=== PATIENT | female | born 1945 | race Caucasian/White ===

== ENCOUNTER 2022-08-10 12:20 | Outpatient (CLI) | payer MEDICARE, SELFPAY ==
--- NOTE | 2022-08-10 12:15 | RT.EKG_ITS ---
APPROVED REPORT Exam: Resting ECG Reason for Exam: Irregular Heartbeat Patient Location: O HR:79 bpm ECG Measurements Heart Rate 79 AXIS ME 141 P 73 QRSd 96 QRS -14 QT 378 T 57 QTc 434 Conclusion Sinus rhythm...normal P axis, V-rate 50- 99 Probable left atrial enlargement...P >50mS, <-0.10mV V1 Otherwise normal ECG
== END 2022-08-10 12:21 | disposition home or self-care (01) ==
PROVIDERS: Visit Provider Nurse Practitioner Family
DX: I48.91 Unspecified atrial fibrillation (principal)
CPT/HCPCS: 93010

== ENCOUNTER 2022-08-10 12:42 | Outpatient (REF) | payer MEDICARE, SELFPAY ==
[2022-08-10 20:38] LABS: Bilirubin Negative (Negative); Blood Moderate (Negative); Clarity Clear (Clear); Glucose Negative (Negative); Ketones Negative (Negative); Leukocyte Esterase Small (Negative); Nitrite Negative (Negative); Specific Gravity 1.025 (1.005-1.025); Urobilinogen 0.2 mg/dL (Up to 0.2)
[2022-08-10 20:38] LABS: HCT 46.4 % (36.0-46.0); HGB 15.2 g/dL (11.2-15.7); MCH 29.8 pg (27.0-33.0); MCHC 32.8 % (32.0-36.0); MCV 91 fL (80-95); Platelet Count 175 10^3/uL (130-400); RDW 12.9 % (11.7-14.6); RDW-SD 43.7 fL; WBC 6.92 10^3/uL (4.4-10.8)
[2022-08-10 20:56] LABS: ALT 20 U/L (14-59); AST 15 U/L (15-37); Albumin 3.8 g/dL (3.4-5.0); Alkaline Phosphatase 87 U/L (46-116); Anion Gap 6.2 mmol/L (3-11); BUN 16 mg/dL (7-18); Bilirubin, Total 0.5 mg/dL (0.2-1.0); CO2 30.8 mmol/L (21.0-32.0); CREATININE 0.8 mg/dL (0.55-1.02); Calcium 9.6 mg/dL (8.5-10.1); Chloride 107 mmol/L (98-107); Glucose 115 mg/dL (74-106); Potassium 4.2 mmol/L (3.5-5.1); Sodium 144 mmol/L (136-145); TSH 0.03 uIU/mL (0.36-3.74); Total Protein 6.7 g/dL (6.4-8.2)
[2022-08-10 20:57] LABS: Bacteria Moderate HPF (Negative); C & S Indicated? Yes; Casts Negative LPF (Negative); Crystals Negative HPF (Negative); Epithelial Cells Few HPF (Negative); Mucus Negative (Negative); Other Cells Rare Transitional (Negative)
== END 2022-08-10 12:43 | disposition home or self-care (01) ==
LOC: LBN 12:42
PROVIDERS: Visit Provider Nurse Practitioner Family
DX: R00.2 Palpitations (principal); N39.0 Urinary tract infection, site not specified
CPT/HCPCS: 80053; 85027; 81003; 81015; 84443; 87086

== ENCOUNTER 2022-08-12 11:34 | Outpatient (RCR) | payer MEDICARE, SELFPAY ==
--- NOTE | 2022-08-12 11:30 | HOLTER_ITS ---
APPROVED REPORT Conclusion This is a 48-hour Holter monitor ordered for palpitations Rhythm throughout was sinus with an average heart rate of 64. Minimum was 49, maximum 111 There were rare isolated ventricular ectopic beats, very rare couplets, no ventricular tachycardia There were occasional atrial premature beats A total of 11 self-limited atrial runs occurred. The longest of these was 5 beats in duration There was no atrial fibrillation, no high-grade AV block, no pauses greater than 3 seconds Patient symptoms were reported but could not be reliably correlated to any dysrhythmia
== END 2022-09-01 23:59 | disposition home or self-care (01) ==
LOC: CARDOPNVT 11:34
PROVIDERS: Visit Provider Nurse Practitioner Family
DX: I49.9 Cardiac arrhythmia, unspecified (principal)
CPT/HCPCS: 93227; 93225; 93226

== ENCOUNTER 2022-08-12 17:43 | Outpatient (CLI) | payer MEDICARE, SELFPAY ==
[2022-08-12 13:49] LABS: FREE T4 1.08 ng/dL (0.76-1.46)
[2022-08-12 23:11] LABS: T3,Free 5.5 pg/mL (2.8-5.3)
== END 2022-08-12 17:44 | disposition home or self-care (01) ==
LOC: LBO 17:44
PROVIDERS: Visit Provider Physician Assistant
DX: R00.2 Palpitations (principal); R79.89 Other specified abnormal findings of blood chemistry
CPT/HCPCS: 36415; 84439; 84481; 93225

== ENCOUNTER 2022-11-09 03:50 | Outpatient (CLI) | payer MEDICARE, SELFPAY ==
[2022-11-09 12:27] LABS: ALT 17 U/L (14-59); AST 14 U/L (15-37); Albumin 3.5 g/dL (3.4-5.0); Alkaline Phosphatase 80 U/L (46-116); BUN 18 mg/dL (7-18); Bilirubin, Total 0.4 mg/dL (0.2-1.0); Calcium 9.5 mg/dL (8.5-10.1); Calculated LDL 147 mg/dL (<100); Chloride 107 mmol/L (98-107); Cholesterol 229 mg/dL (<200); Estimated GFR 57.31 (mL/min/1.73m2); Glucose 96 mg/dL (74-106); HDL Cholesterol 47 mg/dL (40-60); Potassium 5.1 mmol/L (3.5-5.1); Sodium 144 mmol/L (136-145); TSH (W/Ref FT4) 0.08 uIU/mL (0.36-3.74); Total Protein 6.6 g/dL (6.4-8.2); Triglyceride 177 mg/dL (<150)
[2022-11-09 13:12] LABS: FREE T4 0.88 ng/dL (0.76-1.46)
[2022-11-09 17:41] LABS: Lab Add On Test DONE
[2022-11-10 18:21] LABS: T3, Total 125 ng/dL (97-169)
== END 2022-11-09 03:51 | disposition home or self-care (01) ==
LOC: LBO 03:50
PROVIDERS: PCP Nurse Practitioner Family; Visit Provider Nurse Practitioner Family
DX: E78.5 Hyperlipidemia, unspecified (principal); R00.2 Palpitations; R94.6 Abnormal results of thyroid function studies; R79.89 Other specified abnormal findings of blood chemistry
CPT/HCPCS: 36415; 80053; 80061; 84439; 84443; 84480

== ENCOUNTER 2022-11-16 03:34 | Outpatient (CLI) | payer MEDICARE, SELFPAY ==
[2022-11-17 16:55] LABS: Thyrotropin Receptor Ab <1.10 IU/L
== END 2022-11-16 03:35 | disposition home or self-care (01) ==
LOC: LBO 03:34
PROVIDERS: PCP Nurse Practitioner Family; Visit Provider Nurse Practitioner Family
DX: R79.89 Other specified abnormal findings of blood chemistry (principal); E78.5 Hyperlipidemia, unspecified
CPT/HCPCS: 36415; 84235

== ENCOUNTER → 2022-12-10 00:32 | Outpatient (CLI) | payer MEDICARE, SELFPAY ==
--- NOTE | 2022-12-10 07:15 | DI.US_ITS ---
Exam(s) US THYROID EXAM: US THYROID CLINICAL HISTORY: Low TSH, normal T3, T4, ? nodules,R79.89. TECHNIQUE: Ultrasound thyroid performed using standard protocol. COMPARISON: No exams were available for comparison FINDINGS: ISTHMUS: 2.8 mm RIGHT LOBE: Size: 5.6 x 2.0 x 2.2 cm Echogenicity: Normal. Vascularity: Normal. Nodules: There are multiple nodule seen in the right lobe of the thyroid gland. There is a 2.1 x 1.4 x 1.7 cm nodule in the right lobe. It is solid and isoechoic. It is consistent with a TI rads leve l 3 nodule. Due to its size, follow-up is recommended. There is also a 1.1 x 0.7 x 1.3 cm mixed hyp oechoic nodule in the thyroid. Echogenic foci are seen internally. It is consistent with TI rads le dajuan 4 nodule. Due to its size, follow-up is recommended. LEFT LOBE: Size: 5.7 x 1.9 x 2.2 cm Echogenicity: Normal. Vascularity: Normal. Nodules: There is a 2.1 x 1.5 x 1.8 cm spongiform nodule in the left lobe of the thyroid gland. Ther e are no nodules warranting follow-up or biopsy in the left lobe. OTHER FINDINGS: None. IMPRESSION: Multinodular thyroid gland. Two nodules in the right lobe as described above. Due to their size, fo llow-up is recommended. DATA REPOSITORY:
== END ==
PROVIDERS: PCP Nurse Practitioner Family; Visit Provider Nurse Practitioner Family
DX: R91.1 Solitary pulmonary nodule (principal)
CPT/HCPCS: 76536

== ENCOUNTER 2023-08-18 14:53 | Outpatient (REF) | payer MEDICARE, SELFPAY | END 2023-08-18 14:54 | disposition home or self-care (01) | LOC: LBN 14:53 | PROVIDERS: PCP Nurse Practitioner Family; Visit Provider Nurse Practitioner Family | DX: N89.8 Other specified noninflammatory disorders of vagina (principal); B96.89 Other specified bacterial agents as the cause of diseases classified elsewhere | CPT/HCPCS: 87480; 87510; 87660 ==

== ENCOUNTER 2023-09-27 10:21 | Outpatient (REF) | payer MEDICARE, SELFPAY | END 2023-09-27 10:22 | disposition home or self-care (01) | LOC: LBN 10:21 | PROVIDERS: PCP Nurse Practitioner Family; Visit Provider Physician Assistant | DX: R30.0 Dysuria (principal); N39.0 Urinary tract infection, site not specified | CPT/HCPCS: 87086; 87480; 87510; 87660 ==

== ENCOUNTER 2023-10-14 18:35 | Outpatient (REF) | payer MEDICARE, SELFPAY ==
[2023-10-14 21:37] LABS: Bilirubin Negative (Negative); Blood Large (Negative); Clarity Turbid (Clear); Glucose Negative (Negative); Ketones Negative (Negative); Leukocyte Esterase Negative (Negative); Nitrite Negative (Negative); Urobilinogen 0.2 mg/dL (Up to 0.2)
[2023-10-14 22:31] LABS: C & S Indicated? Yes; RBC >50 HPF (0-2)
== END 2023-10-14 18:36 | disposition home or self-care (01) ==
LOC: LBN 18:35
PROVIDERS: PCP Nurse Practitioner Family; Visit Provider Nurse Practitioner Family
DX: R35.0 Frequency of micturition (principal); R31.9 Hematuria, unspecified; R39.15 Urgency of urination
CPT/HCPCS: 81003; 81015; 87086

== ENCOUNTER 2023-10-17 04:00 | Outpatient (CLI) | payer MEDICARE, SELFPAY ==
[2023-10-17 15:53] LABS: Abs Immature Grans 0.04 10^3/uL (0.0-0.06); Absolute Basophil Count 0.04 10^3/uL (0.0-0.2); Absolute Eosinophil Count 0.14 10^3/uL (0.0-0.7); Absolute Lymphocyte Count 2.62 10^3/uL (1.2-3.4); Absolute Monocyte Count 0.88 10^3/uL (0.1-0.8); Absolute Neutrophil Count 4.75 10^3/uL (1.2-6.7); Basophils % 0.5 %; Eosinophils % 1.7 %; HCT 43.7 % (36.0-46.0); HGB 14.4 g/dL (11.2-15.7); Immature Grans % 0.5 %; Lymphocytes % 30.9 %; MCH 30.6 pg (27.0-33.0); MCV 93 fL (80-95); MPV 10.3 fL (8.0-11.0); Monocytes % 10.4 %; Platelet Count 216 10^3/uL (130-400); RBC 4.71 10^6/uL (3.93-5.22); RDW-SD 44.4 fL; WBC 8.47 10^3/uL (4.4-10.8)
[2023-10-17 17:28] LABS: ALT 21 U/L (14-59); AST 13 U/L (15-37); Albumin 3.6 g/dL (3.4-5.0); Alkaline Phosphatase 72 U/L (46-116); BUN 22 mg/dL (7-18); Bilirubin, Total 0.29 mg/dL (0.2-1.0); CREATININE 0.9 mg/dL (0.55-1.02); Calcium 9.6 mg/dL (8.5-10.1); Chloride 107 mmol/L (98-107); Estimated GFR 64.63 (mL/min/1.73m2); Glucose 93 mg/dL (74-106); Sodium 141 mmol/L (136-145); Total Protein 6.3 g/dL (6.4-8.2)
== END 2023-10-17 04:01 | disposition home or self-care (01) ==
LOC: LBO 04:00
PROVIDERS: PCP Nurse Practitioner Family; Visit Provider Nurse Practitioner Family
DX: R31.9 Hematuria, unspecified (principal)
CPT/HCPCS: 36415; 80053; 85025

== ENCOUNTER → 2023-10-18 01:21 | Outpatient (CLI) | payer MEDICARE, SELFPAY ==
--- NOTE | 2023-10-18 07:30 | DI.CT_ITS ---
Exam(s) CT ABDOMEN PELVIS WO EXAM: CT ABDOMEN PELVIS WO CLINICAL HISTORY: hematuria,R31.9. TECHNIQUE: Imaging Protocol: Axial computed tomography images with coronal and sagittal reformatted images were created and reviewed. Oral: no COMPARISON: No exams were available for comparison FINDINGS: Lung Bases: No acute findings. Liver: Normal density. No suspicious mass. Gallbladder and biliary tract: No radiodense calculus or biliary dilation. Pancreas: Normal density. No abnormal calcifications or inflammatory process. Spleen: Normal. Kidneys: Normal size, contour and axis. No radiodense stones. No obstructive uropathy. No suspicious masses seen. Adrenal glands: No masses seen. Lymph nodes: Within normal limits. Vasculature: Abdominal aorta non-dilated. Severe atherosclerotic changes. Soft tissues: Unremarkable. Bladder: No wall thickening. 2.8 by 5.7 x 4.7 centimeter rounded mass located in the inferior bladder centrally. Distal high-density material seen in the right side of the bladder measuring 3.4 by 2.3 cm. This could represent hemorrhage versus additional mass. Bowel: No obstruction or bowel wall thickening. Severe diverticulosis throughout the colon. No myke dence of diverticulitis. Appendix normal.. Peritoneal cavity: No ascites. No focal collection. No mesenteric inflammatory response. Reproductive organs: Unremarkable. Bones: Unremarkable for age. IMPRESSION: Large mass located at the floor of the bladder. Additional high-density material on the right side o f the bladder could represent additional vas versus hemorrhage. Kidneys appear normal. Severe diverticulosis Unexpected findings RADIATION DOSE DELIVERED: Total DLP DATA REPOSITORY: All CT scans at this facility are submitted to the National Radiology Data Registry (NRDR) Dose Index Registry (DIR) with the [employer] (ACR). RADIATION OPTIMIZATION: All CT scans at this facility use at least one of these dose optimization te chniques: automated exposure control; mA and/or kV adjustment per patient size (includes targeted exa ms where dose is matched to clinical indication); or iterative reconstruction.
== END ==
PROVIDERS: PCP Nurse Practitioner Family; Visit Provider Nurse Practitioner Family
DX: R31.9 Hematuria, unspecified (principal); N32.89 Other specified disorders of bladder
CPT/HCPCS: 74176

== ENCOUNTER 2023-12-01 09:21 | Outpatient (CLI) | payer MEDICARE, SELFPAY ==
--- NOTE | 2023-12-01 09:15 | RT.EKG_ITS ---
APPROVED REPORT Exam: Resting ECG Reason for Exam: fluttery heart feeling Patient Location: O HR:90 bpm ECG Measurements Heart Rate 90 AXIS WA 145 P 78 QRSd 101 QRS 0 QT 368 T 39 QTc 451 Conclusion Sinus rhythm Atrial premature beats Left atrial enlargement...P, P'>60mS, <-0.15mV V1
== END 2023-12-01 09:22 | disposition home or self-care (01) ==
LOC: DI.CM 09:22
PROVIDERS: PCP Nurse Practitioner Family; Visit Provider Physician Assistant
DX: I49.8 Other specified cardiac arrhythmias (principal)
CPT/HCPCS: 93010

== ENCOUNTER 2023-12-01 10:15 | Emergency (ER) | payer MEDICARE, SELFPAY ==
[2023-12-01] VITALS (32 sets, daily range): BP systolic 114–156; BP diastolic 46–73; PULSE 52–86; RESP 10–24; TEMP 36.5; O2SAT 95–99
--- NOTE | 2023-12-01 10:15 | RT.EKG_ITS ---
APPROVED REPORT Exam: Resting ECG Reason for Exam: Palpitations Patient Location: E HR:82 bpm ECG Measurements Heart Rate 82 AXIS AL 132 P 94 QRSd 75 QRS 64 QT 374 T 57 QTc 409 Conclusion Sinus rhythm...normal P axis, V-rate 60- 99 Atrial premature complexes...SV complexes w/ short R-R intvls Left atrial enlargement...P, P'>60mS, <-0.15mV V1
[2023-12-01 11:22] LABS: Abs Immature Grans 0.03 10^3/uL (0.0-0.06); Absolute Basophil Count 0.05 10^3/uL (0.0-0.2); Absolute Eosinophil Count 0.08 10^3/uL (0.0-0.7); Absolute Lymphocyte Count 2.11 10^3/uL (1.2-3.4); Absolute Monocyte Count 0.71 10^3/uL (0.1-0.8); Basophils % 0.7 %; Eosinophils % 1.1 %; HGB 14.4 g/dL (11.2-15.7); Immature Grans % 0.4 %; Lymphocytes % 27.8 %; MCH 30.3 pg (27.0-33.0); MCV 95 fL (80-95); MPV 10.2 fL (8.0-11.0); Monocytes % 9.4 %; Neutrophils % 60.6 %; Platelet Count 287 10^3/uL (130-400); RBC 4.76 10^6/uL (3.93-5.22); RDW 12.8 % (11.7-14.6); RDW-SD 44.3 fL; WBC 7.58 10^3/uL (4.4-10.8)
[2023-12-01 11:46] LABS: ALT 23 U/L (14-59); AST 15 U/L (15-37); Albumin 3.7 g/dL (3.4-5.0); Alkaline Phosphatase 83 U/L (46-116); Anion Gap 5.6 mmol/L (3-11); BUN 12 mg/dL (7-18); Bilirubin, Total 0.39 mg/dL (0.2-1.0); CO2 31.4 mmol/L (21.0-32.0); CREATININE 0.8 mg/dL (0.55-1.02); Calcium 9.7 mg/dL (8.5-10.1); Chloride 107 mmol/L (98-107); Estimated GFR 74.44 (mL/min/1.73m2); Glucose 86 mg/dL (74-106); Magnesium 1.8 mg/dL (1.8-2.4); Potassium 4.2 mmol/L (3.5-5.1); Sodium 144 mmol/L (136-145); TSH (W/Ref FT4) 0.04 uIU/mL (0.36-3.74); Total Protein 7.1 g/dL (6.4-8.2); Troponin I < 50 ng/L (< or =60)
[2023-12-01 12:02] LABS: FREE T4 1.01 ng/dL (0.76-1.46)
--- NOTE | 2023-12-01 14:58 | NUR.NOTE ---
Referral given to Heena Montenegro for assistance setting up an appointment with Endocrinology for hyperthyroid/palpations sometime next week or NIRAJ
[2023-12-01 22:46] LABS: T3,Free 4.7 pg/mL (2.8-5.3)
--- NOTE | 2023-12-03 08:45 | ED.GENADUL_ITS ---
Discharge Plan Disposition Patient Disposition: Home Condition: Stable Discharge Details Clinical Impression: Low TSH level, Heart palpitations Primary Care Provider: Maria Fernanda Gu ED Provider: Sheron Aguayo Home Meds and New Rx's Prescriptions: Continued Betimol 5 ML drops 1 drp Ophthalmic BID acetaminophen [Tylenol] 325 MG tablet 650 mg PO PRN PRN Discharge Instructions Instructions: Hyperthyroidism (Overactive Thyroid) (DC), Palpitations (DC) Additional Instructions: Purchase an omyu-usv-ldiszjw pulse oximeter and check your pulse when you are having palpitations, if your heart rate is over 100, please return for reassessment Continue on your other prescribed medications I placed a referral for [facility] endocrinology for follow-up, they will contact you and you will have an appointment next week for reassessment Talk to your doctor about a Zio patch so that we can keep track of your rhythm and please return immediately should you have new or worsening complaints your exam today is reassuring otherwise Referrals: Maria Fernanda Gu NP [Primary Care Provider] - 1 day Discharge Data Discharge Date/Time-TO BE ENTERED AT DEPARTURE: 12/01/23 15:15 HPI General Date/Time Provider Initiated Documentation: 12/01/23 10:36 . HPI Narrative: 81-year-old female presents with palpitations intermittently for the past few years but worsening in the past few days. Denies any chest pain or shortness of breath. States she feels anxious. Denies any chest discomfort, calf pain or swelling, recent flights, surgeries, long drives. Denies history of pulmonary embolism or shortness of breath. Denies any nausea or vomiting. Related Data Home Medications ?Medication ?Instructions ?Recorded ?Confirmed timolol 0.5 % eye drops (Betimol) 1 drp ophthalmic (eye) BID 07/02/15 12/01/23 acetaminophen 325 mg tablet 650 mg PO PRN PRN 07/03/15 12/01/23 (Tylenol) Allergies Allergy/AdvReac Type Severity Reaction Status Date / Time No Known Allergies Allergy Unverified 12/01/23 10:26 General Stated Complaint: Palpitatns VAUGHN: 3 Exam Narrative Exam Narrative: 78-year-old female presenting in no acute distress, alert and oriented, cardiac rate rhythm regular, lungs clear to auscultation, no calf or tenderness, distal pulses intact, no murmurs or rubs Course Vital Signs Vital signs: Vital Signs Temperature 36.5 C 12/01/23 10:18 Pulse 86 12/01/23 10:18 Respiratory Rate 14 12/01/23 10:18 Blood Pressure 152/73 H 12/01/23 10:18 Pulse Oximetry 99 12/01/23 10:18 Temperature 36.5 C 12/01/23 10:18 Temperature Source Temporal Artery Scan 12/01/23 10:18 Pulse 56 L 12/01/23 13:46 Pulse 82 12/01/23 15:10 Respiratory Rate 24 12/01/23 15:10 Respiratory Effort Normal 12/01/23 10:54 Blood Pressure 152/57 H 12/01/23 13:46 Blood Pressure Mean 83 12/01/23 13:46 Blood Pressure Position Sitting 12/01/23 10:18 Pulse Oximetry 97 12/01/23 13:46 Oxygen Delivery Method Room Air 12/01/23 10:18 Oxygen Flow Rate 0 12/01/23 10:18 Pain Level 0 12/01/23 10:18 Lab/Test Results Lab/Test Results: Laboratory Tests Range/Units 12/01/23 12/01/23 10:38 11:13 WBC (4.4-10.8) 10^3/uL 7.58 RBC (3.93-5.22) 10^6/uL 4.76 Hgb (11.2-15.7) g/dL 14.4 Hct (36.0-46.0) % 45.0 MCV (80-95) fL 95 MCH (27.0-33.0) pg 30.3 MCHC (32.0-36.0) % 32.0 RDW (11.7-14.6) % 12.8 Plt Count (130-400) 10^3/uL 287 MPV (8.0-11.0) fL 10.2 Immature Gran % % 0.4 Neutrophils % % 60.6 Lymphocytes % % 27.8 Monocytes % % 9.4 Eosinophils % % 1.1 Basophils % % 0.7 Nucleated RBC % (0.0-0.3) % 0.0 Absolute Neutrophils (1.2-6.7) 10^3/uL 4.60 Absolute Lymphocytes (1.2-3.4) 10^3/uL 2.11 Absolute Monocytes (0.1-0.8) 10^3/uL 0.71 Absolute Eosinophils (0.0-0.7) 10^3/uL 0.08 Absolute Basophils (0.0-0.2) 10^3/uL 0.05 Sodium (136-145) mmol/L 144 Potassium (3.5-5.1) mmol/L 4.2 Chloride (98-107) mmol/L 107 Carbon Dioxide (21.0-32.0) mmol/L 31.4 Anion Gap (3-11) mmol/L 5.6 BUN (7-18) mg/dL 12 Creatinine (0.55-1.02) mg/dL 0.8 Est GFR (CKD-EPI 2020) (mL/min/1.73m2) 74.44 Glucose (74-106) mg/dL 86 Calcium (8.5-10.1) mg/dL 9.7 Magnesium (1.8-2.4) mg/dL 1.8 Total Bilirubin (0.2-1.0) mg/dL 0.39 AST (15-37) U/L 15 ALT (14-59) U/L 23 Alkaline Phosphatase (46-116) U/L 83 Troponin I Cancelled < 50 Total Protein (6.4-8.2) g/dL 7.1 Albumin (3.4-5.0) g/dL 3.7 TSH Cancelled 0.04 L Free T4 (0.76-1.46) ng/dL 1.01 Free T3 pg/mL (2.8-5.3) pg/mL 4.7 Medical Decision Making Alert and oriented 78-year-old female in no acute distress with sinus arrhythmia noted on EKG, no evidence of acute ischemia. I had noted bili low at 0.04 Free T4 within normal limits, pending free T3. I suspect patient has subclinical hyperthyroidism and needs endocrinology evaluation. I did speak with editorial cartoonist, Dr. Tabor at [facility]. They will see patient next week in the office on Tuesday or Tuesday. At this time I have low clinical suspicion for pulmonary embolism or DVT. Diagnostic labs including 2 troponins are negative for acute abnormality. Free T3 is pending. Endocrinology does not recommend treatment at this time patient will continue supportive care, no acute distress, discharged home. Low suspicion clinically for cardiac etiology of patient's complaint Quality:SDOH Health Related Social Needs: No Data to Display PFSH All Active Problems (Updated 12/01/23 @ 15:00 by RICHARD Gonzalez) Heart palpitations (Acute) Bladder mass (Acute) Hematuria (Acute) Multinodular thyroid (Acute) Low TSH level (Acute) Hyperlipidemia (Acute) Surgical History Extraction of cataract 07/03/15; DR. SAHU; LEFT EYE 07/17/15; DR. SAHU; RIGHT EYE Family History Mother Stroke Father Personal history of malignant neoplasm PROSTATE Sister Diabetes Thyroid cancer Maternal Grandfather No problems noted. Paternal Grandfather No problems noted. Maternal Grandmother No problems noted. Paternal Grandmother No problems noted. Social History Smoking/Tobacco Use Status: Current every day Tobacco Type: cigarettes Tobacco: How many years used: 60 Second Hand Exposure: Yes Smoking risk assessment performed?: Yes Alcohol Intake: current Alcohol Intake frequency: 0-2 drinks per day Alcohol type: beer Drug use: Never Substance use type: does not use Adopted: No Caregiver/Support person: No Household members: none Housing: house Number of Children: 2 number of grandchildren: 3 Communication Needs: Corrective Lenses Do you need help understanding health information?: Rarely current occupation: retired Pets and animals: Yes Pets and animals: dog(s) Sexually active: No Do you think of yourself as: straight/heterosexual Current gender identity: female What is your relationship status?: How often do you talk on the phone with friends or family?: three or more times per week How often do you get together with friends or relatives?: three or more times per week How often do you attend anglican or sabianism services?: decline to answer Do you belong to any clubs or organized social groups?: no Panel score (0-1 are the most socially isolated patients): 1 Scarlett/Scientology: Presybeterian Special scarlett needs: No Seatbelt use: always Helmet use: No Drive intox or ride w/intox concrete mixing truck driver: No Firearms in home: No Do you feel safe at home: Yes Victim of physical abuse: No Victim of emotional abuse: No Victim of sexual abuse: No Would you like helpful sources: No
--- NOTE | 2023-12-03 12:49 | NUR.NOTE ---
Referral sent back to clarify where the referral is to be sent. It needs to be sent to [facility] [place]. Nursing Note:
== END 2023-12-01 15:15 | disposition home or self-care (01) ==
PROVIDERS: Emergency Provider Physician Assistant; PCP Nurse Practitioner Family
DX: R00.2 Palpitations (principal); R79.89 Other specified abnormal findings of blood chemistry
CPT/HCPCS: 80053; 93005; 99283; 83735; 84439; 84443; 84481; 84484; 85025; 93010

== ENCOUNTER 2024-01-09 16:04 | Outpatient (REF) | payer MEDICARE, SELFPAY ==
[2024-01-09 18:16] LABS: Bilirubin Negative (Negative); Blood Large (Negative); Clarity Cloudy (Clear); Glucose Negative (Negative); Ketones Negative (Negative); Leukocyte Esterase Moderate (Negative); Nitrite Negative (Negative); Specific Gravity 1.025 (1.005-1.025); Urobilinogen 0.2 mg/dL (Up to 0.2)
[2024-01-09 18:29] LABS: Bacteria Rare HPF (Negative); C & S Indicated? C&S Done As Ordered; Crystals Negative HPF (Negative); Epithelial Cells Moderate HPF (Negative); Mucus Trace (Negative); Other Cells Rare Transitional (Negative); RBC >50 HPF (0-2); WBC 20-50 HPF (0-5)
== END 2024-01-09 16:05 | disposition home or self-care (01) ==
LOC: LBN 16:04
PROVIDERS: PCP Nurse Practitioner Family; Visit Provider Urology
DX: R30.0 Dysuria (principal); R82.89 Other abnormal findings on cytological and histological examination of urine
CPT/HCPCS: 81003; 81015; 87086

== ENCOUNTER 2024-01-25 02:10 | Outpatient (CLI) | payer MEDICARE, SELFPAY ==
--- NOTE | 2024-01-25 | DI.US_ITS ---
Exam(s) US RENAL EXAM: US RENAL CLINICAL HISTORY: H/o rt ureteral tumor s/p resection, ? 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 TECHNIQUE: Shabazz scale, color and spectral Doppler were used. COMPARISON: CT CT ABDOMEN PELVIS WO from 10/18/2023 FINDINGS: Renal size in cm: Right: 8.8. Left: 9.9. Echogenicity: Normal. Hydronephrosis: The right renal pelvis is not dilated. The ureter is visualized proximally and measu res 6 mm in diameter. Cyst or mass: No. Nephrolithiasis: No. Other findings: None. Bladder:There is a 1.5 x 1.4 cm area of decreased echogenicity protruding into the left aspect of the urinary bladder posteriorly. The urinary bladder is otherwise unremarkable. Ureteral jets: A single ureteral jet is seen. Prevoid vol:239 cc Postvoid vol:14 cc Renal color flow: Symmetric and within normal limits. IMPRESSION: 1. There is a 1.5 x 1.4 cm area of decreased echogenicity in the left aspect of the urinary bladder p osteriorly protruding into the bladder. Differential considerations include ureterocele, bladder/ure teral mass or infection/inflammation. 2. The right renal pelvis is not significantly enlarged. The proximal ureter is visualized and measu res 6 mm in diameter. DATA REPOSITORY:
== END 2024-01-25 02:30 ==
LOC: DI 02:10
PROVIDERS: PCP Nurse Practitioner Family; Visit Provider Urology
DX: N32.89 Other specified disorders of bladder (principal)
CPT/HCPCS: 76770

== ENCOUNTER 2024-01-25 14:58 | Outpatient (REF) | payer MEDICARE, SELFPAY ==
[2024-01-25 16:02] LABS: Bilirubin Negative (Negative); Blood Trace-lysed (Negative); Clarity Clear (Clear); Glucose Negative (Negative); Ketones Negative (Negative); Leukocyte Esterase Moderate (Negative); Nitrite Negative (Negative); Urobilinogen 0.2 mg/dL (Up to 0.2)
[2024-01-25 16:08] LABS: Bacteria Few HPF (Negative); C & S Indicated? C&S Done As Ordered; Casts Negative LPF (Negative); Crystals Negative HPF (Negative); Epithelial Cells Moderate HPF (Negative); Mucus Trace (Negative); RBC 0-2 HPF (0-2)
== END 2024-01-25 14:59 | disposition home or self-care (01) ==
LOC: LBN 14:58
PROVIDERS: PCP Nurse Practitioner Family; Visit Provider Urology
DX: R30.0 Dysuria (principal); N32.89 Other specified disorders of bladder
CPT/HCPCS: 81003; 81015; 87086

== ENCOUNTER 2024-05-31 02:54 | Outpatient (CLI) | payer MEDICARE, SELFPAY ==
[2024-05-31 13:21] LABS: Folate 19.3 ng/mL (8.6-20.0); Vitamin B12 524 pg/mL (193-986); Vitamin D 25 Total 30.2 ng/mL (30-100)
== END 2024-05-31 02:55 | disposition home or self-care (01) ==
LOC: LOS 02:54
PROVIDERS: PCP Nurse Practitioner Family; Visit Provider Nurse Practitioner Family
DX: E55.9 Vitamin D deficiency, unspecified (principal); E53.8 Deficiency of other specified B group vitamins
CPT/HCPCS: 36415; 82306; 82607; 82746

== ENCOUNTER 2024-08-20 04:14 | Outpatient (CLI) | payer MEDICARE, SELFPAY ==
[2024-08-20 10:34] LABS: TSH < 0.01 uIU/mL (0.36-3.74)
== END 2024-08-20 04:15 | disposition home or self-care (01) ==
PROVIDERS: PCP Nurse Practitioner Family; Visit Provider Student in an Organized Health Care Education/Training Program
DX: E05.20 Thyrotoxicosis with toxic multinodular goiter without thyrotoxic crisis or storm (principal)
CPT/HCPCS: 36415; 84439; 84443

== ENCOUNTER 2024-08-23 15:09 | Outpatient (REF) | payer MEDICARE, SELFPAY | END 2024-08-23 15:10 | disposition home or self-care (01) | LOC: LBN 15:09 | PROVIDERS: PCP Nurse Practitioner Family; Visit Provider Nurse Practitioner Family | DX: N89.8 Other specified noninflammatory disorders of vagina (principal) | CPT/HCPCS: 87480; 87510; 87660 ==

== ENCOUNTER 2024-09-05 02:43 | Outpatient (CLI) | payer MEDICARE, SELFPAY ==
[2024-09-05 11:52] LABS: ALT 16 U/L (14-59); AST 13 U/L (15-37); Albumin 3.2 g/dL (3.4-5.0); Alkaline Phosphatase 73 U/L (46-116); Anion Gap 5.1 mmol/L (3-11); BUN 16 mg/dL (7-18); Bilirubin, Total 0.5 mg/dL (0.2-1.0); CO2 30.9 mmol/L (21.0-32.0); CREATININE 0.9 mg/dL (0.55-1.02); Calcium 9.4 mg/dL (8.5-10.1); Calculated LDL 117 mg/dL (<100); Chloride 106 mmol/L (98-107); Cholesterol 175 mg/dL (<200); Estimated GFR 64.23 (mL/min/1.73m2); Glucose 137 mg/dL (74-106); HDL Cholesterol 41 mg/dL (>or=50); Potassium 4.3 mmol/L (3.5-5.1); Sodium 142 mmol/L (136-145); Total Protein 6.5 g/dL (6.4-8.2); Triglyceride 87 mg/dL (<150)
[2024-09-05 12:01] LABS: TSH < 0.01 uIU/mL (0.36-3.74)
== END 2024-09-05 02:44 | disposition home or self-care (01) ==
LOC: LBO 02:43
PROVIDERS: Student in an Organized Health Care Education/Training Program; PCP Nurse Practitioner Family; Visit Provider Nurse Practitioner Family
DX: E78.5 Hyperlipidemia, unspecified; R79.89 Other specified abnormal findings of blood chemistry
CPT/HCPCS: 36415; 80053; 80061; 84439; 84443

== ENCOUNTER 2024-09-17 00:47 | Outpatient (CLI) | payer MEDICARE, SELFPAY ==
[2024-09-17 13:25] LABS: FREE T4 1.22 ng/dL (0.76-1.46)
[2024-09-17 13:26] LABS: TSH < 0.01 uIU/mL (0.36-3.74)
== END 2024-09-17 00:48 | disposition home or self-care (01) ==
LOC: LBO 00:47
PROVIDERS: PCP Nurse Practitioner Family; Visit Provider Student in an Organized Health Care Education/Training Program
DX: E05.20 Thyrotoxicosis with toxic multinodular goiter without thyrotoxic crisis or storm (principal)
CPT/HCPCS: 36415; 84439; 84443